=== PATIENT | female | born 1960 | race Caucasian/White ===

== ENCOUNTER 2017-02-13 17:02 | Inpatient (IN) | payer OTHER ==
[~2017-02-13] VITALS: Ht 165.1 cm; Wt 109.5 kg
--- NOTE | ~2017-02-13 | EKG ---
[address] [address] ELECTROCARDIOGRAM REPORT Name: JANET GRADY [id number] Admission: 02/13/17 Attend Phys: Discharge: Date of : 64 Report #: [id number] THIS REPORT FOR: //name// [facility] ED Test Date: 2017-02-13 Test Time: 17:58:03 Pat Name: JANET GRADY Department: Room: Gender: F Cashier Assistant: MZOOK : 1960 Requested By: Adia Pak Order Number: [id number] MD: Derrick Gill Measurements Intervals [place] Rate: 89 P: 67 MI: 133 QRS: 61 QRSD: 95 T: 59 QT: 358 QTc: 436 Interpretive Statements Sinus rhythm Poor R wave progression No previous ECG available for comparison Electronically Signed On 02-13-2017 18:31:53 CDT by Derrick Gill [email or web address] <ELECTRONICALLY SIGNED> By: Derrick Gill MD 02/13/17 1831 [id number] 1758 Derrick Gill MD /EPI
--- NOTE | ~2017-02-13 | H ---
[facility] [place] [address] HISTORY AND PHYSICAL Name: JANET GRADY Room #: 441-P ADM IN M.R.#: [id number] Admission: 02/13/17 Attend Phys: Ventura Stiles Discharge: Date of : 64 Report #: [id number] THIS REPORT FOR: //name// CC: GEGE Pond DATE OF SERVICE: 02/13/2017 ATTENDING PHYSICIAN: Speedy Pond M.D. PRIMARY CARE PHYSICIAN: Adelaida Goldberg NP-C at [facility]. CHIEF COMPLAINT: Lower extremity swelling and pain. HISTORY OF PRESENT ILLNESS: The patient is a 56-year-old obese female who is a diabetic. She states that she has had increasing swelling and pain in her lower extremities over the course of a month. She says this started after she developed some sores in bilateral aly areas. She does not know how she got these sores. She denies any insect bites or injury. She denies any prior history of DVT. She denies any recent long distance travel. She says the pain in her legs has gotten to the point where it is making walking difficult. She feels like it is a [id number] feeling in both her lower extremities. She denies any fevers or chills. She has noticed increasing exertional dyspnea and does have underlying emphysema. She has never required any oxygen at home, but does do nebulizer treatments and uses an inhaler. In the ER, she was diagnosed with a DVT as well as cellulitis and has been admitted for further treatment. PAST MEDICAL HISTORY: Diabetes, hypertension, emphysema, asthma, CVA with some residual speech problems. PAST SURGICAL HISTORY: None. ALLERGIES: None. HOME MEDICATIONS: Reviewed. SOCIAL HISTORY: The patient is a current smoker. She smokes 1-2 packs of cigarettes per day. She has been smoking since the age of 15. Denies any alcohol or drug use. She normally walks independently. She lives with her grandson and her spouse. FAMILY HISTORY: Significant for diabetes in her father who is alive. Her mother is alive and healthy. There are no family members with any cancer or coronary artery disease. REVIEW OF SYSTEMS: A 12-point review of systems was reviewed with the patient [address] [address] HISTORY AND PHYSICAL Name: JANET Lit Room #: 441-P [facility]#: [id number] Admission: 02/13/17 Attend Phys: Ventura Stiles Discharge: Date of : 64 Report #: [id number] and otherwise negative unless stated in the HPI. PHYSICAL EXAMINATION: GENERAL: The patient is an alert female in no acute distress. VITAL SIGNS: Temperature is 37.0, heart rate 89, respirations 16, blood pressure 144/74 and oxygen 99% on room air. HEENT: PERRLA. Oral mucosa is pink and moist. NECK: Supple, no JVD noted. CARDIOVASCULAR: Normal S1 and S2. No murmurs, rubs or gallops. RESPIRATORY: Breath sounds are clear bilateral upper lobes. She is diminished in both bases. Breathing is nonlabored. ABDOMEN: Soft, obese, nontender and nondistended with positive bowel sounds. VASCULAR: She does have 2+ to 3+ bilateral lower extremity edema noted, which starts in her feet and goes all the way up to her thighs. Both lower extremities are somewhat erythematous. The right is worse than the left and very tender to touch. The right calf is somewhat firm. There are open areas on both shins. The right is draining a small amount of purulent fluid. NEUROLOGIC: The patient is alert and oriented x 3. Speech is clear. She is answering questions appropriately and following commands. No focal neuro deficits noted. LABORATORY DATA AND DIAGNOSTICS: WBC is 12.5, hemoglobin 15 and platelets 254. Sodium 136, potassium 4.1, BUN 23, creatinine 1.1 and glucose is 159. LFTs are within normal limits. Troponins negative. D-dimer is 1.24 and CTA of the chest was negative for PE. Chest x-ray is negative. BNP is 62. Ultrasound of the right lower extremity showed an extensive occlusive DVT from the right common femoral through the popliteal vein. ASSESSMENT AND PLAN: 1. Extensive right lower extremity deep vein thrombosis: The patient will continue on therapeutic Lovenox. She was educated on Coumadin versus Xarelto and told we will need to switch to an oral anticoagulant today. She should continue on a blood thinner for 6 months. 2. Bilateral lower extremity cellulitis. She does have bilateral aly wounds. We will continue with antibiotics and follow the wound cultures. She will continue vancomycin. 3. Diabetes type 2. This is stable. We do need to place metformin on hold because of her CT, and we will do a sliding scale insulin and check blood sugars a.c. and at bedtime. 4. Chronic respiratory failure due to emphysema. She does have ongoing tobacco abuse. She has been advised to quit. She does request a nicotine patch. Continue with breathing treatments p.r.n. 5. Hypertension. Blood pressure is stable. Continue home medications. 6. Obesity. 7. Deep vein thrombosis prophylaxis. Start Lovenox. [facility] [address] [place] [address] HISTORY AND PHYSICAL Name: JANTE GRADY Room #: 441-P ADM IN [facility].#: [id number] Admission: 02/13/17 Attend Phys: Ventura Stiles Discharge: Date of : 64 Report #: [id number] We will continue to follow the patient closely throughout the hospitalization and make changes based on clinical status. <ELECTRONICALLY SIGNED> By: ITZEL Sidhu 02/17/17 0658 [id number] ITZEL Sidhu /nt
[~2017-02-13 17:02] MED LIST: ASPIRIN325 PO; FLOVENT HFA 1110 MCG INH; HYDROCHLOROTHIA25 M2 PO; LEVAQUIN 500 M500 M2 PO; LISINOPRIL20 MG PO; LOVASTAT40 PO; NAPROSYN500 MG PO; NICOTINE1 EAC2 TD; NORVASC10 MG PO; PREDNISONE 10 M10 MG PO; SPIRIVA INH; TRAMADOL 50 MG50 MG PO; VENTOLIN HFA 1818 GM INH; ZOLOFT100 MG PO
[2017-02-13 17:04] VITALS: BP 144/74
[2017-02-13 18:14] LABS: ABSOLUTE NEUTROPHILS 6.7 thou/uL (1.4-8.2); BASOPHILS 2.1 % (0.0-2.0); EOSINOPHILS 3.6 % (0.0-3.0); HEMATOCRIT 43.7 % (37.0-47.0); LYMPHOCYTES 31.4 % (24.0-44.0); MCH 30.5 pg (26.0-34.0); MCHC 34.3 g/dL (28.0-37.0); MCV 88.9 fL (80.0-100.0); MONOCYTES 9.3 % (1.0-8.0); PLATELET COUNT 254 thou/uL (150-400); POLYS 53.6 % (36.0-66.0); RBC 4.91 mil/uL (4.20-5.00); RDW 13.8 % (10.5-14.5); WBC 12.5 thou/uL (4.0-11.0)
[2017-02-13 18:17] LABS: MANUAL DIFF NO
[2017-02-13 18:26] LABS: ANION GAP 8 mmol/L (7-16); BUN 23 mg/dL (7-18); CALCIUM 9.6 mg/dL (8.5-10.1); CHLORIDE 99 mmol/L (98-107); CO2 29 mmol/L (21-32); CREATININE 1.1 mg/dL (0.6-1.3); GLUCOSE 159 mg/dL (70-99); POTASSIUM 4.1 mmol/L (3.5-5.1); SODIUM 136 mmol/L (136-145)
[2017-02-13 18:33] LABS: APTT 30.2 Seconds (24.5-32.8); PROTIME 9.7 Seconds (9.3-11.4)
[2017-02-13 18:42] LABS: ALBUMIN 3.5 g/dL (3.4-5.0); ALKALINE PHOSPHATASE 109 U/L (46-116); NT-PRO BRAIN NAT PEPTIDE 62 pg/mL (<300); SGOT 14 U/L (15-37); SGPT 23 U/L (30-65); TOTAL BILIRUBIN 0.2 mg/dL (<0.1-1.0); TOTAL PROTEIN 7.8 g/dL (6.4-8.2); TROPONIN-I < 0.04 ng/mL (<0.04-0.07)
[2017-02-13 20:50] VITALS: BP 139/58
[2017-02-14] MEDS ORDERED: METFORMIN HCL500 MG PO (00:12)
[2017-02-14] MEDS ORDERED: AMLODIPINE BESY10 MG PO (00:12)
[2017-02-14 03:50] VITALS: BP 118/57
[2017-02-14 08:22] VITALS: BP 108/49
[2017-02-14 12:00] VITALS: BP 123/57
[2017-02-14 16:04] VITALS: BP 121/59
[2017-02-14 20:45] VITALS: BP 109/68
[2017-02-14 21:06] LABS: GLYCOHEMOGLOBIN (HGB A1C) 6.8 % (4.8-5.6)
[2017-02-15 04:00] VITALS: BP 126/46
[2017-02-15 08:00] VITALS: BP 129/50
[2017-02-15 12:00] VITALS: BP 122/62
[2017-02-15 16:00] VITALS: BP 132/71
[2017-02-15 19:44] VITALS: BP 124/61
[2017-02-16 04:31] VITALS: BP 120/63
[2017-02-16 05:36] LABS: PROTIME 10.4 Seconds (9.3-11.4)
[2017-02-16 07:29] VITALS: BP 120/63
[2017-02-16 08:00] VITALS: BP 136/53
[2017-02-16 15:56] VITALS: BP 142/59
[2017-02-16 19:54] VITALS: BP 143/63
[2017-02-17 03:52] VITALS: BP 118/61
[2017-02-17 07:44] VITALS: BP 138/73
[2017-02-17 07:49] VITALS: BP 130/64
[2017-02-17] MEDS ORDERED: COUMADIN 4 MG TA4 M1 PO (09:53)
[2017-02-17] MEDS ORDERED: CEPHALEXIN 250250 M1 PO (09:53)
[2017-02-17] MEDS ORDERED: ENOXAPARIN100 MG/11 SUBQ (09:54)
[2017-02-17 10:44] LABS: INR 1.4; PROTIME 14.7 Seconds (9.3-11.4)
[2017-02-17 12:30] VITALS: BP 120/70
== END 2017-02-17 17:49 | disposition home or self-care (01) | DRG 300 ==
LOC: ER 17:02 → EROBS 19:24 → 4S 19:24
PROVIDERS: Family Medicine; Hospitalist; Nurse Practitioner; Nurse Practitioner Acute Care; Physician Assistant
DX: I82.411 Acute embolism and thrombosis of right femoral vein (principal); L03.116 Cellulitis of left lower limb; L03.115 Cellulitis of right lower limb; J96.10 Chronic respiratory failure, unspecified whether with hypoxia or hypercapnia; Z68.41 Body mass index [BMI] 40.0-44.9, adult; I10 Essential (primary) hypertension; J45.909 Unspecified asthma, uncomplicated; E11.9 Type 2 diabetes mellitus without complications; J43.9 Emphysema, unspecified; F17.210 Nicotine dependence, cigarettes, uncomplicated; E66.9 Obesity, unspecified; Z79.4 Long term (current) use of insulin; Z79.899 Other long term (current) drug therapy; Z86.73 Personal history of transient ischemic attack (TIA), and cerebral infarction without residual deficits; Z83.3 Family history of diabetes mellitus; Z23 Encounter for immunization
CPT/HCPCS: 10100

== ENCOUNTER 2017-04-11 22:34 | Emergency (ER) | payer OTHER ==
[~2017-04-11] VITALS: Ht 165.1 cm; Wt 111.1 kg
[~2017-04-11 22:34] MED LIST changes: +AMLODIPINE BESY10 MG PO; +CEPHALEXIN 250250 M1 PO; +COUMADIN 4 MG TA4 M1 PO; +ENOXAPARIN100 MG/11 SUBQ; +METFORMIN HCL500 MG PO
[2017-04-12 00:43] LABS: ABSOLUTE NEUTROPHILS 6.7 thou/uL (1.4-8.2); BASOPHILS 1.2 % (0.0-2.0); EOSINOPHILS 2.6 % (0.0-3.0); HEMATOCRIT 43.6 % (37.0-47.0); HEMOGLOBIN 14.7 gm/dL (12.0-15.0); LYMPHOCYTES 32.7 % (24.0-44.0); MANUAL DIFF NO; MCH 30.5 pg (26.0-34.0); MCHC 33.7 g/dL (28.0-37.0); MCV 90.4 fL (80.0-100.0); MONOCYTES 9.7 % (1.0-8.0); PLATELET COUNT 304 thou/uL (150-400); POLYS 53.8 % (36.0-66.0); RBC 4.83 mil/uL (4.20-5.00); WBC 12.4 thou/uL (4.0-11.0)
[2017-04-12 00:47] LABS: CALCIUM 9.6 mg/dL (8.5-10.1); CREATININE 1.3 mg/dL (0.6-1.0)
[2017-04-12 01:53] LABS: PROTIME 50.9 Seconds (9.3-11.4)
[2017-04-12] MEDS ORDERED: COUMADIN 1MG TAB1 M1 PO (02:19)
[2017-04-12] MEDS ORDERED: BACTRIM DS TAB1 EACH PO (02:26)
[2017-04-12] MEDS ORDERED: LASIX 20 MG TAB20 MG PO (02:26)
== END 2017-04-12 03:02 | disposition home or self-care (01) ==
LOC: ER 22:34
PROVIDERS: Emergency Medicine
DX: L08.89 Other specified local infections of the skin and subcutaneous tissue (principal); R60.9 Edema, unspecified; R79.1 Abnormal coagulation profile; I10 Essential (primary) hypertension; E11.9 Type 2 diabetes mellitus without complications; J45.909 Unspecified asthma, uncomplicated; F17.210 Nicotine dependence, cigarettes, uncomplicated

== ENCOUNTER 2017-05-28 19:43 | Inpatient (IN) | payer OTHER ==
[~2017-05-28] VITALS: Ht 165.1 cm; Wt 106.6 kg
[~2017-05-28 19:43] MED LIST changes: +BACTRIM DS TAB1 EACH PO; +COUMADIN 1MG TAB1 M1 PO; +LASIX 20 MG TAB20 MG PO
[2017-05-28 19:52] VITALS: BP 143/73
[2017-05-28 21:40] LABS: ABSOLUTE NEUTROPHILS 6.9 thou/uL (1.4-8.2); BASOPHILS 1.2 % (0.0-2.0); EOSINOPHILS 2.3 % (0.0-3.0); HEMATOCRIT 39.7 % (37.0-47.0); HEMOGLOBIN 13.3 gm/dL (12.0-15.0); LYMPHOCYTES 30.9 % (24.0-44.0); MCH 30.2 pg (26.0-34.0); MCHC 33.6 g/dL (28.0-37.0); MONOCYTES 8.8 % (1.0-8.0); PLATELET COUNT 309 thou/uL (150-400); POLYS 56.8 % (36.0-66.0); RBC 4.41 mil/uL (4.20-5.00); RDW 15.3 % (10.5-14.5); WBC 12.2 thou/uL (4.0-11.0)
[2017-05-28 21:41] LABS: MANUAL DIFF NO
[2017-05-28 21:48] LABS: ANION GAP 8 mmol/L (7-16); BUN 47 mg/dL (7-18); CALCIUM 9.6 mg/dL (8.5-10.1); CHLORIDE 104 mmol/L (98-107); CO2 25 mmol/L (21-32); CREATININE 1.4 mg/dL (0.6-1.0); GLUCOSE 117 mg/dL (74-106); POTASSIUM 5.6 mmol/L (3.5-5.1); SODIUM 137 mmol/L (136-145)
[2017-05-28 22:13] LABS: ALBUMIN 3.4 g/dL (3.4-5.0); ALKALINE PHOSPHATASE 87 U/L (46-116); DIRECT BILIRUBIN < 0.1 mg/dL (<0.1-0.3); SGOT 24 U/L (15-37); SGPT 19 U/L (30-65); TOTAL BILIRUBIN 0.4 mg/dL (<0.1-1.0); TOTAL PROTEIN 8.3 g/dL (6.4-8.2)
[2017-05-28 22:45] LABS: PROTIME 65.6 Seconds (9.3-11.4)
[2017-05-28 22:49] LABS: APTT > 198.4 Seconds (24.5-32.8); INR 6.3
[2017-05-28 23:05] VITALS: BP 101/52
[2017-05-28 23:23] VITALS: BP 109/59
[2017-05-29] VITALS (14 sets, daily range): BP systolic 71–134; BP diastolic 30–89
[2017-05-29 07:01] LABS: URINE BILIRUBIN NEGATIVE (Negative); URINE BLOOD NEGATIVE (Negative); URINE COLOR YELLOW; URINE GLUCOSE-RANDOM* NEGATIVE (Negative); URINE KETONES NEGATIVE (Negative); URINE NITRITE NEGATIVE (Negative); URINE PROTEIN (DIPSTICK) NEGATIVE (Negative); URINE UROBILINOGEN 0.2 E.U./dl (0.2-1.0)
[2017-05-29 07:30] LABS: HEMATOCRIT 37.3 % (37.0-47.0); HEMOGLOBIN 12.1 gm/dL (12.0-15.0); MCH 29.8 pg (26.0-34.0); MCHC 32.4 g/dL (28.0-37.0); MCV 92.2 fL (80.0-100.0); RBC 4.04 mil/uL (4.20-5.00); RDW 15.6 % (10.5-14.5); WBC 11.9 thou/uL (4.0-11.0)
[2017-05-29 07:47] LABS: INR 5.6; PROTIME 58.2 Seconds (9.3-11.4)
[2017-05-29 07:50] LABS: CALCIUM 8.9 mg/dL (8.5-10.1); CREATININE 2.2 mg/dL (0.6-1.0); POTASSIUM 5.7 mmol/L (3.5-5.1); TOTAL BILIRUBIN 0.3 mg/dL (<0.1-1.0); TOTAL PROTEIN 7.2 g/dL (6.4-8.2)
[2017-05-29] MEDS ORDERED: Coumadin (18:34)
[2017-05-29] MEDS ORDERED: NAPROSYN500 M1 PO (18:36)
[2017-05-29] MEDS ORDERED: FLEXERIL PO (18:39)
[2017-05-30 00:31] VITALS: BP 122/61
[2017-05-30 04:00] VITALS: BP 91/52
[2017-05-30 05:54] LABS: ABSOLUTE NEUTROPHILS 5.1 thou/uL (1.4-8.2); EOSINOPHILS 2.7 % (0.0-3.0); HEMATOCRIT 35.6 % (37.0-47.0); HEMOGLOBIN 11.9 gm/dL (12.0-15.0); LYMPHOCYTES 36.5 % (24.0-44.0); MCH 30.5 pg (26.0-34.0); MCHC 33.4 g/dL (28.0-37.0); MCV 91.3 fL (80.0-100.0); MONOCYTES 10.3 % (1.0-8.0); PLATELET COUNT 263 thou/uL (150-400); POLYS 49.5 % (36.0-66.0); RDW 15.1 % (10.5-14.5); WBC 10.3 thou/uL (4.0-11.0)
[2017-05-30 06:02] LABS: MANUAL DIFF NO
[2017-05-30 06:12] LABS: INR 1.9; PROTIME 19.2 Seconds (9.3-11.4)
[2017-05-30 06:21] LABS: CALCIUM 8.4 mg/dL (8.5-10.1); CREATININE 2.2 mg/dL (0.6-1.0); POTASSIUM 5.7 mmol/L (3.5-5.1)
[2017-05-30 08:46] VITALS: BP 102/57
[2017-05-30 16:31] VITALS: BP 93/55
[2017-05-30 20:30] VITALS: BP 90/53
[2017-05-31 04:28] LABS: INR 1.2; PROTIME 12.1 Seconds (9.3-11.4)
[2017-05-31 04:50] LABS: HEMATOCRIT 35.3 % (37.0-47.0); HEMOGLOBIN 11.7 gm/dL (12.0-15.0); MCH 30.3 pg (26.0-34.0); MCHC 33.1 g/dL (28.0-37.0); MCV 91.3 fL (80.0-100.0); RBC 3.87 mil/uL (4.20-5.00); RDW 15.1 % (10.5-14.5); WBC 10.6 thou/uL (4.0-11.0)
[2017-05-31 04:55] LABS: ALBUMIN 2.8 g/dL (3.4-5.0); CALCIUM 8.6 mg/dL (8.5-10.1); CREATININE 1.8 mg/dL (0.6-1.0); MAGNESIUM 1.7 mg/dL (1.8-2.4); POTASSIUM 5.6 mmol/L (3.5-5.1); TOTAL BILIRUBIN 0.3 mg/dL (<0.1-1.0)
[2017-05-31 05:00] VITALS: BP 95/63
[2017-05-31 08:00] VITALS: BP 109/64
[2017-05-31 16:00] VITALS: BP 116/53
[2017-05-31 19:30] VITALS: BP 121/61
[2017-05-31 21:06] VITALS: BP 114/45
[2017-06-01 02:57] VITALS: BP 107/53
[2017-06-01 05:00] LABS: ABSOLUTE NEUTROPHILS 5.6 thou/uL (1.4-8.2); BASOPHILS 0.8 % (0.0-2.0); EOSINOPHILS 2.9 % (0.0-3.0); HEMATOCRIT 34.2 % (37.0-47.0); HEMOGLOBIN 11.7 gm/dL (12.0-15.0); LYMPHOCYTES 26.3 % (24.0-44.0); MCH 30.6 pg (26.0-34.0); MCHC 34.1 g/dL (28.0-37.0); MCV 89.6 fL (80.0-100.0); MONOCYTES 9.7 % (1.0-8.0); PLATELET COUNT 256 thou/uL (150-400); POLYS 60.3 % (36.0-66.0); RBC 3.82 mil/uL (4.20-5.00); RDW 14.7 % (10.5-14.5); WBC 9.4 thou/uL (4.0-11.0)
[2017-06-01 05:01] LABS: MANUAL DIFF NO
[2017-06-01 05:07] LABS: CALCIUM 8.7 mg/dL (8.5-10.1); CREATININE 1.2 mg/dL (0.6-1.0); MAGNESIUM 1.9 mg/dL (1.8-2.4); PHOSPHORUS 2.7 mg/dL (2.5-4.9); POTASSIUM 4.9 mmol/L (3.5-5.1)
[2017-06-01 05:42] LABS: INR 1.1; PROTIME 10.9 Seconds (9.3-11.4)
[2017-06-01 08:53] VITALS: BP 130/76
[2017-06-01] MEDS ORDERED: DOXYCYCLINE 10100 MG PO (09:39)
[2017-06-01 12:33] VITALS: BP 130/76
== END 2017-06-01 15:50 | disposition home or self-care (01) | DRG 871 ==
LOC: ER 19:43 → 4S 22:04 → EROBS 22:04 → 4S 22:52
PROVIDERS: Family Medicine; Nurse Practitioner; Nurse Practitioner Family; Registered Nurse
DX: A41.9 Sepsis, unspecified organism (principal); J96.00 Acute respiratory failure, unspecified whether with hypoxia or hypercapnia; L03.116 Cellulitis of left lower limb; L03.115 Cellulitis of right lower limb; J44.9 Chronic obstructive pulmonary disease, unspecified; J45.909 Unspecified asthma, uncomplicated; F17.210 Nicotine dependence, cigarettes, uncomplicated; E11.22 Type 2 diabetes mellitus with diabetic chronic kidney disease; I87.2 Venous insufficiency (chronic) (peripheral); I12.9 Hypertensive chronic kidney disease with stage 1 through stage 4 chronic kidney disease, or unspecified chronic kidney disease; N18.3 Chronic kidney disease, stage 3 (moderate); E87.5 Hyperkalemia; R09.02 Hypoxemia; I95.9 Hypotension, unspecified; A49.02 Methicillin resistant Staphylococcus aureus infection, unspecified site; Z86.718 Personal history of other venous thrombosis and embolism; Z79.01 Long term (current) use of anticoagulants; Z79.82 Long term (current) use of aspirin; Z79.899 Other long term (current) drug therapy
CPT/HCPCS: 10100

== ENCOUNTER → 2017-06-09 | Outpatient (CLI) | payer OTHER ==
[~2017-06-09] MED LIST changes: +Coumadin; +DOXYCYCLINE 10100 MG PO; +FLEXERIL PO; +NAPROSYN500 M1 PO
== END ==
LOC: HYPER 06:57
DX: E11.622 Type 2 diabetes mellitus with other skin ulcer (principal); L97.811 Non-pressure chronic ulcer of other part of right lower leg limited to breakdown of skin; L97.821 Non-pressure chronic ulcer of other part of left lower leg limited to breakdown of skin; I10 Essential (primary) hypertension; J43.9 Emphysema, unspecified; Z79.84 Long term (current) use of oral hypoglycemic drugs; Z79.01 Long term (current) use of anticoagulants; Z86.718 Personal history of other venous thrombosis and embolism; Z86.14 Personal history of Methicillin resistant Staphylococcus aureus infection; F17.200 Nicotine dependence, unspecified, uncomplicated

== ENCOUNTER → 2017-06-23 | Outpatient (CLI) | payer OTHER | LOC: HYPER 07:01 | DX: E11.622 Type 2 diabetes mellitus with other skin ulcer (principal); L97.811 Non-pressure chronic ulcer of other part of right lower leg limited to breakdown of skin; L97.821 Non-pressure chronic ulcer of other part of left lower leg limited to breakdown of skin; E11.628 Type 2 diabetes mellitus with other skin complications; Z79.84 Long term (current) use of oral hypoglycemic drugs; Z79.01 Long term (current) use of anticoagulants; Z86.718 Personal history of other venous thrombosis and embolism; I10 Essential (primary) hypertension; Z86.14 Personal history of Methicillin resistant Staphylococcus aureus infection; J43.9 Emphysema, unspecified; F17.200 Nicotine dependence, unspecified, uncomplicated ==

== ENCOUNTER → 2017-08-04 | Outpatient (CLI) | payer OTHER | LOC: HYPER 07-07 07:07 | DX: E11.622 Type 2 diabetes mellitus with other skin ulcer (principal); L97.812 Non-pressure chronic ulcer of other part of right lower leg with fat layer exposed; L97.822 Non-pressure chronic ulcer of other part of left lower leg with fat layer exposed; Z79.84 Long term (current) use of oral hypoglycemic drugs; Z79.01 Long term (current) use of anticoagulants; Z86.718 Personal history of other venous thrombosis and embolism; I10 Essential (primary) hypertension; Z86.14 Personal history of Methicillin resistant Staphylococcus aureus infection; J43.9 Emphysema, unspecified; F17.200 Nicotine dependence, unspecified, uncomplicated ==

== ENCOUNTER 2017-09-12 11:55 | Emergency (ER) | payer OTHER ==
[~2017-09-12] VITALS: Ht 165.1 cm; Wt 102.1 kg
[2017-09-12 13:51] LABS: HEMATOCRIT 41.9 % (37.0-47.0); MCH 30.2 pg (26.0-34.0); MCHC 33.3 g/dL (28.0-37.0); MCV 90.7 fL (80.0-100.0); RBC 4.62 mil/uL (4.20-5.00); RDW 14.4 % (10.5-14.5); WBC 7.4 thou/uL (4.0-11.0)
[2017-09-12 13:59] LABS: CREATININE 1.4 mg/dL (0.6-1.0); POTASSIUM 4.5 mmol/L (3.5-5.1)
[2017-09-12 14:07] LABS: INR 3.3; PROTIME 32.8 Seconds (9.3-11.4)
== END 2017-09-12 14:23 | disposition home or self-care (01) ==
LOC: ER 11:55
PROVIDERS: Emergency Medicine
DX: M79.605 Pain in left leg (principal); I10 Essential (primary) hypertension; E11.9 Type 2 diabetes mellitus without complications; J45.909 Unspecified asthma, uncomplicated; F17.210 Nicotine dependence, cigarettes, uncomplicated; Z86.718 Personal history of other venous thrombosis and embolism; Z86.79 Personal history of other diseases of the circulatory system

== ENCOUNTER → 2017-10-21 | Outpatient (CLI) | payer OTHER | LOC: HYPER 07:58 | DX: E11.622 Type 2 diabetes mellitus with other skin ulcer (principal); I87.2 Venous insufficiency (chronic) (peripheral); L97.812 Non-pressure chronic ulcer of other part of right lower leg with fat layer exposed; L97.822 Non-pressure chronic ulcer of other part of left lower leg with fat layer exposed; E11.628 Type 2 diabetes mellitus with other skin complications; I10 Essential (primary) hypertension; J43.9 Emphysema, unspecified; F17.200 Nicotine dependence, unspecified, uncomplicated; Z86.718 Personal history of other venous thrombosis and embolism; Z79.01 Long term (current) use of anticoagulants; Z79.84 Long term (current) use of oral hypoglycemic drugs ==

== ENCOUNTER → 2017-11-18 | Outpatient (CLI) | payer OTHER | LOC: HYPER 06:42 | DX: E11.622 Type 2 diabetes mellitus with other skin ulcer (principal); L97.812 Non-pressure chronic ulcer of other part of right lower leg with fat layer exposed; L97.822 Non-pressure chronic ulcer of other part of left lower leg with fat layer exposed; I10 Essential (primary) hypertension; J43.8 Other emphysema; F17.200 Nicotine dependence, unspecified, uncomplicated; Z86.718 Personal history of other venous thrombosis and embolism; Z79.84 Long term (current) use of oral hypoglycemic drugs; Z79.01 Long term (current) use of anticoagulants ==

== ENCOUNTER → 2017-12-09 | Outpatient (CLI) | payer OTHER | LOC: HYPER 06:47 | DX: E11.622 Type 2 diabetes mellitus with other skin ulcer (principal); L97.812 Non-pressure chronic ulcer of other part of right lower leg with fat layer exposed; L97.822 Non-pressure chronic ulcer of other part of left lower leg with fat layer exposed; E11.628 Type 2 diabetes mellitus with other skin complications; Z79.84 Long term (current) use of oral hypoglycemic drugs; Z79.01 Long term (current) use of anticoagulants; J44.9 Chronic obstructive pulmonary disease, unspecified; Z86.718 Personal history of other venous thrombosis and embolism; F17.210 Nicotine dependence, cigarettes, uncomplicated ==

== ENCOUNTER → 2018-01-06 | Outpatient (CLI) | payer OTHER | LOC: HYPER 07:05 | DX: E11.622 Type 2 diabetes mellitus with other skin ulcer (principal); L97.812 Non-pressure chronic ulcer of other part of right lower leg with fat layer exposed; E11.628 Type 2 diabetes mellitus with other skin complications; J43.9 Emphysema, unspecified; I10 Essential (primary) hypertension; F17.200 Nicotine dependence, unspecified, uncomplicated; Z79.84 Long term (current) use of oral hypoglycemic drugs; Z79.01 Long term (current) use of anticoagulants; Z86.718 Personal history of other venous thrombosis and embolism ==

== ENCOUNTER → 2018-02-03 | Outpatient (CLI) | payer OTHER | LOC: HYPER 06:47 | DX: E11.622 Type 2 diabetes mellitus with other skin ulcer (principal); L97.812 Non-pressure chronic ulcer of other part of right lower leg with fat layer exposed; L84 Corns and callosities; I10 Essential (primary) hypertension; J43.9 Emphysema, unspecified; F17.200 Nicotine dependence, unspecified, uncomplicated; Z86.718 Personal history of other venous thrombosis and embolism; Z79.84 Long term (current) use of oral hypoglycemic drugs; Z79.01 Long term (current) use of anticoagulants ==

== ENCOUNTER → 2018-03-31 | Outpatient (CLI) | payer OTHER | LOC: HYPER 06:48 | DX: E11.622 Type 2 diabetes mellitus with other skin ulcer (principal); L97.812 Non-pressure chronic ulcer of other part of right lower leg with fat layer exposed; I10 Essential (primary) hypertension; J43.9 Emphysema, unspecified; F17.200 Nicotine dependence, unspecified, uncomplicated; Z79.84 Long term (current) use of oral hypoglycemic drugs; Z79.01 Long term (current) use of anticoagulants; Z86.718 Personal history of other venous thrombosis and embolism ==

== ENCOUNTER → 2018-05-04 | Outpatient (CLI) | payer OTHER | LOC: HYPER 07:06 | DX: E11.622 Type 2 diabetes mellitus with other skin ulcer (principal); L97.812 Non-pressure chronic ulcer of other part of right lower leg with fat layer exposed; I10 Essential (primary) hypertension; L84 Corns and callosities; J43.9 Emphysema, unspecified; F17.200 Nicotine dependence, unspecified, uncomplicated; Z79.84 Long term (current) use of oral hypoglycemic drugs; Z79.01 Long term (current) use of anticoagulants; Z86.718 Personal history of other venous thrombosis and embolism ==

== ENCOUNTER → 2018-05-18 | Outpatient (CLI) | payer OTHER | LOC: HYPER 06:55 | DX: E11.622 Type 2 diabetes mellitus with other skin ulcer (principal); L97.812 Non-pressure chronic ulcer of other part of right lower leg with fat layer exposed; R60.1 Generalized edema; I10 Essential (primary) hypertension; J45.909 Unspecified asthma, uncomplicated; J43.9 Emphysema, unspecified; F17.200 Nicotine dependence, unspecified, uncomplicated; Z79.84 Long term (current) use of oral hypoglycemic drugs; Z79.01 Long term (current) use of anticoagulants; Z72.0 Tobacco use; Z86.718 Personal history of other venous thrombosis and embolism ==

== ENCOUNTER → 2018-06-09 | Outpatient (CLI) | payer OTHER | LOC: HYPER 06-01 06:56 | DX: E11.622 Type 2 diabetes mellitus with other skin ulcer (principal); L97.812 Non-pressure chronic ulcer of other part of right lower leg with fat layer exposed; I10 Essential (primary) hypertension; J43.9 Emphysema, unspecified; F17.200 Nicotine dependence, unspecified, uncomplicated; Z79.84 Long term (current) use of oral hypoglycemic drugs; Z79.01 Long term (current) use of anticoagulants; Z86.718 Personal history of other venous thrombosis and embolism ==

== ENCOUNTER → 2018-06-23 | Outpatient (CLI) | payer OTHER | LOC: HYPER 06:51 | DX: E11.622 Type 2 diabetes mellitus with other skin ulcer (principal); L97.812 Non-pressure chronic ulcer of other part of right lower leg with fat layer exposed; I10 Essential (primary) hypertension; L84 Corns and callosities; J34.9 Unspecified disorder of nose and nasal sinuses; F17.200 Nicotine dependence, unspecified, uncomplicated; Z79.84 Long term (current) use of oral hypoglycemic drugs; Z86.718 Personal history of other venous thrombosis and embolism; Z79.01 Long term (current) use of anticoagulants ==

== ENCOUNTER → 2018-09-07 | Outpatient (CLI) | payer OTHER | LOC: HYPER 08-26 06:52 | DX: E11.622 Type 2 diabetes mellitus with other skin ulcer (principal); L97.812 Non-pressure chronic ulcer of other part of right lower leg with fat layer exposed; L84 Corns and callosities; I10 Essential (primary) hypertension; J43.9 Emphysema, unspecified; F17.200 Nicotine dependence, unspecified, uncomplicated; Z86.718 Personal history of other venous thrombosis and embolism; Z79.84 Long term (current) use of oral hypoglycemic drugs; Z79.01 Long term (current) use of anticoagulants ==

== ENCOUNTER → 2018-09-28 | Outpatient (CLI) | payer OTHER | LOC: HYPER 07:18 | DX: E11.622 Type 2 diabetes mellitus with other skin ulcer (principal); L97.812 Non-pressure chronic ulcer of other part of right lower leg with fat layer exposed; L84 Corns and callosities; I10 Essential (primary) hypertension; J43.9 Emphysema, unspecified; F17.200 Nicotine dependence, unspecified, uncomplicated; Z86.718 Personal history of other venous thrombosis and embolism; Z79.84 Long term (current) use of oral hypoglycemic drugs; Z79.01 Long term (current) use of anticoagulants ==

== ENCOUNTER → 2018-11-02 | Outpatient (CLI) | payer OTHER | LOC: HYPER 10-19 08:55 | DX: E11.622 Type 2 diabetes mellitus with other skin ulcer (principal); L97.812 Non-pressure chronic ulcer of other part of right lower leg with fat layer exposed; I10 Essential (primary) hypertension; J43.9 Emphysema, unspecified; F17.200 Nicotine dependence, unspecified, uncomplicated; Z79.84 Long term (current) use of oral hypoglycemic drugs; Z79.01 Long term (current) use of anticoagulants; Z86.718 Personal history of other venous thrombosis and embolism ==

== ENCOUNTER → 2018-11-30 | Outpatient (CLI) | payer OTHER | LOC: HYPER 06:37 | DX: E11.622 Type 2 diabetes mellitus with other skin ulcer (principal); L97.812 Non-pressure chronic ulcer of other part of right lower leg with fat layer exposed; L84 Corns and callosities; I10 Essential (primary) hypertension; J43.9 Emphysema, unspecified; F17.200 Nicotine dependence, unspecified, uncomplicated; Z79.84 Long term (current) use of oral hypoglycemic drugs; Z86.718 Personal history of other venous thrombosis and embolism; Z79.01 Long term (current) use of anticoagulants ==

== ENCOUNTER → 2018-12-28 | Outpatient (CLI) | payer OTHER | LOC: HYPER 06:56 | DX: E11.622 Type 2 diabetes mellitus with other skin ulcer (principal); L97.812 Non-pressure chronic ulcer of other part of right lower leg with fat layer exposed; L84 Corns and callosities; I10 Essential (primary) hypertension; J43.9 Emphysema, unspecified; F17.200 Nicotine dependence, unspecified, uncomplicated; Z86.718 Personal history of other venous thrombosis and embolism; Z79.84 Long term (current) use of oral hypoglycemic drugs; Z79.01 Long term (current) use of anticoagulants ==

== ENCOUNTER → 2019-01-25 | Outpatient (CLI) | payer OTHER | LOC: HYPER 07:07 | DX: E11.622 Type 2 diabetes mellitus with other skin ulcer (principal); L97.812 Non-pressure chronic ulcer of other part of right lower leg with fat layer exposed; L84 Corns and callosities; I10 Essential (primary) hypertension; J43.9 Emphysema, unspecified; F17.200 Nicotine dependence, unspecified, uncomplicated; Z86.718 Personal history of other venous thrombosis and embolism; Z79.84 Long term (current) use of oral hypoglycemic drugs; Z79.01 Long term (current) use of anticoagulants ==

== ENCOUNTER → 2019-02-22 | Outpatient (CLI) | payer OTHER | LOC: HYPER 07:47 | DX: E11.622 Type 2 diabetes mellitus with other skin ulcer (principal); L97.812 Non-pressure chronic ulcer of other part of right lower leg with fat layer exposed; L84 Corns and callosities; I10 Essential (primary) hypertension; J43.9 Emphysema, unspecified; F17.200 Nicotine dependence, unspecified, uncomplicated; Z79.84 Long term (current) use of oral hypoglycemic drugs; Z86.718 Personal history of other venous thrombosis and embolism; Z79.01 Long term (current) use of anticoagulants ==

== ENCOUNTER → 2019-03-31 | Outpatient (CLI) | payer OTHER | LOC: HYPER 06:44 | DX: E11.622 Type 2 diabetes mellitus with other skin ulcer (principal); L97.812 Non-pressure chronic ulcer of other part of right lower leg with fat layer exposed; I87.2 Venous insufficiency (chronic) (peripheral); R60.1 Generalized edema; L84 Corns and callosities; I10 Essential (primary) hypertension; J43.9 Emphysema, unspecified; F17.200 Nicotine dependence, unspecified, uncomplicated; Z79.84 Long term (current) use of oral hypoglycemic drugs; Z79.01 Long term (current) use of anticoagulants; Z86.718 Personal history of other venous thrombosis and embolism ==

== ENCOUNTER → 2021-02-27 | Outpatient (CLI) | payer OTHER | LOC: HYPER 08:39 | PROVIDERS: ATTEND Emergency Medicine | DX: E11.622 Type 2 diabetes mellitus with other skin ulcer (principal); L97.812 Non-pressure chronic ulcer of other part of right lower leg with fat layer exposed; I87.2 Venous insufficiency (chronic) (peripheral); E66.01 Morbid (severe) obesity due to excess calories; I10 Essential (primary) hypertension; J43.9 Emphysema, unspecified; F17.219 Nicotine dependence, cigarettes, with unspecified nicotine-induced disorders; Z86.14 Personal history of Methicillin resistant Staphylococcus aureus infection; Z86.718 Personal history of other venous thrombosis and embolism; Z68.39 Body mass index [BMI] 39.0-39.9, adult; Z79.84 Long term (current) use of oral hypoglycemic drugs ==

== ENCOUNTER → 2021-03-08 | Outpatient (CLI) | payer OTHER | LOC: SJCVCIMAG 09:23 | PROVIDERS: ATTEND Internal Medicine Cardiovascular Disease | DX: I73.9 Peripheral vascular disease, unspecified (principal); L97.919 Non-pressure chronic ulcer of unspecified part of right lower leg with unspecified severity ==

== ENCOUNTER → 2021-03-13 | Outpatient (CLI) | payer OTHER | LOC: HYPER 09:34 | PROVIDERS: ATTEND Emergency Medicine | DX: E11.622 Type 2 diabetes mellitus with other skin ulcer (principal); L97.812 Non-pressure chronic ulcer of other part of right lower leg with fat layer exposed; I87.2 Venous insufficiency (chronic) (peripheral); E66.01 Morbid (severe) obesity due to excess calories; I10 Essential (primary) hypertension; J43.9 Emphysema, unspecified; F17.219 Nicotine dependence, cigarettes, with unspecified nicotine-induced disorders; Z86.14 Personal history of Methicillin resistant Staphylococcus aureus infection; Z86.718 Personal history of other venous thrombosis and embolism; Z68.39 Body mass index [BMI] 39.0-39.9, adult; Z79.84 Long term (current) use of oral hypoglycemic drugs ==

== ENCOUNTER → 2021-03-27 | Outpatient (CLI) | payer OTHER | LOC: HYPER 07:49 | PROVIDERS: ATTEND Emergency Medicine | DX: E11.622 Type 2 diabetes mellitus with other skin ulcer (principal); L97.812 Non-pressure chronic ulcer of other part of right lower leg with fat layer exposed; I87.2 Venous insufficiency (chronic) (peripheral); E66.01 Morbid (severe) obesity due to excess calories; I10 Essential (primary) hypertension; J43.9 Emphysema, unspecified; F17.219 Nicotine dependence, cigarettes, with unspecified nicotine-induced disorders; Z86.14 Personal history of Methicillin resistant Staphylococcus aureus infection; Z86.718 Personal history of other venous thrombosis and embolism; Z68.39 Body mass index [BMI] 39.0-39.9, adult; Z79.84 Long term (current) use of oral hypoglycemic drugs ==

== ENCOUNTER → 2021-04-10 | Outpatient (CLI) | payer OTHER | LOC: HYPER 07:58 | PROVIDERS: ATTEND Emergency Medicine | DX: E11.622 Type 2 diabetes mellitus with other skin ulcer (principal); L97.812 Non-pressure chronic ulcer of other part of right lower leg with fat layer exposed; I87.2 Venous insufficiency (chronic) (peripheral); E66.01 Morbid (severe) obesity due to excess calories; I10 Essential (primary) hypertension; J43.9 Emphysema, unspecified; F17.219 Nicotine dependence, cigarettes, with unspecified nicotine-induced disorders; Z86.14 Personal history of Methicillin resistant Staphylococcus aureus infection; Z86.718 Personal history of other venous thrombosis and embolism; Z68.39 Body mass index [BMI] 39.0-39.9, adult; Z79.84 Long term (current) use of oral hypoglycemic drugs ==

== ENCOUNTER → 2021-05-01 | Outpatient (CLI) | payer OTHER | LOC: HYPER 07:52 | PROVIDERS: ATTEND Emergency Medicine | DX: E11.622 Type 2 diabetes mellitus with other skin ulcer (principal); L97.812 Non-pressure chronic ulcer of other part of right lower leg with fat layer exposed; I87.2 Venous insufficiency (chronic) (peripheral); E66.01 Morbid (severe) obesity due to excess calories; I10 Essential (primary) hypertension; J43.9 Emphysema, unspecified; F17.219 Nicotine dependence, cigarettes, with unspecified nicotine-induced disorders; Z86.14 Personal history of Methicillin resistant Staphylococcus aureus infection; Z86.718 Personal history of other venous thrombosis and embolism; Z68.39 Body mass index [BMI] 39.0-39.9, adult; Z79.84 Long term (current) use of oral hypoglycemic drugs ==

== ENCOUNTER → 2021-05-22 | Outpatient (CLI) | payer OTHER | LOC: HYPER 07:47 | PROVIDERS: ATTEND Emergency Medicine | DX: E11.622 Type 2 diabetes mellitus with other skin ulcer (principal); L97.812 Non-pressure chronic ulcer of other part of right lower leg with fat layer exposed; I87.2 Venous insufficiency (chronic) (peripheral); L84 Corns and callosities; I10 Essential (primary) hypertension; J43.9 Emphysema, unspecified; E66.01 Morbid (severe) obesity due to excess calories; F17.219 Nicotine dependence, cigarettes, with unspecified nicotine-induced disorders; Z68.39 Body mass index [BMI] 39.0-39.9, adult; Z86.718 Personal history of other venous thrombosis and embolism; Z86.14 Personal history of Methicillin resistant Staphylococcus aureus infection; Z79.84 Long term (current) use of oral hypoglycemic drugs; Z79.899 Other long term (current) drug therapy; Z98.890 Other specified postprocedural states ==

== ENCOUNTER → 2021-06-12 | Outpatient (CLI) | payer OTHER | LOC: HYPER 08:47 | PROVIDERS: ATTEND Emergency Medicine | DX: E11.622 Type 2 diabetes mellitus with other skin ulcer (principal); L97.812 Non-pressure chronic ulcer of other part of right lower leg with fat layer exposed; I87.2 Venous insufficiency (chronic) (peripheral); L84 Corns and callosities; I10 Essential (primary) hypertension; J43.9 Emphysema, unspecified; E66.01 Morbid (severe) obesity due to excess calories; F17.219 Nicotine dependence, cigarettes, with unspecified nicotine-induced disorders; Z68.39 Body mass index [BMI] 39.0-39.9, adult; Z86.718 Personal history of other venous thrombosis and embolism; Z86.14 Personal history of Methicillin resistant Staphylococcus aureus infection; Z79.84 Long term (current) use of oral hypoglycemic drugs ==

== ENCOUNTER → 2021-07-03 | Outpatient (CLI) | payer OTHER | LOC: HYPER 08:31 | PROVIDERS: ATTEND Emergency Medicine | DX: E11.622 Type 2 diabetes mellitus with other skin ulcer (principal); L97.812 Non-pressure chronic ulcer of other part of right lower leg with fat layer exposed; I87.2 Venous insufficiency (chronic) (peripheral); L84 Corns and callosities; I10 Essential (primary) hypertension; J43.9 Emphysema, unspecified; E66.01 Morbid (severe) obesity due to excess calories; F17.219 Nicotine dependence, cigarettes, with unspecified nicotine-induced disorders; F17.200 Nicotine dependence, unspecified, uncomplicated; Z68.39 Body mass index [BMI] 39.0-39.9, adult; Z86.14 Personal history of Methicillin resistant Staphylococcus aureus infection; Z86.718 Personal history of other venous thrombosis and embolism; Z79.84 Long term (current) use of oral hypoglycemic drugs; Z79.899 Other long term (current) drug therapy ==

== ENCOUNTER → 2021-07-24 | Outpatient (CLI) | payer OTHER | LOC: HYPER 07:44 | PROVIDERS: ATTEND Emergency Medicine | DX: E11.622 Type 2 diabetes mellitus with other skin ulcer (principal); L97.812 Non-pressure chronic ulcer of other part of right lower leg with fat layer exposed; I87.2 Venous insufficiency (chronic) (peripheral); L84 Corns and callosities; I10 Essential (primary) hypertension; J43.9 Emphysema, unspecified; E66.01 Morbid (severe) obesity due to excess calories; F17.219 Nicotine dependence, cigarettes, with unspecified nicotine-induced disorders; Z68.39 Body mass index [BMI] 39.0-39.9, adult; Z86.14 Personal history of Methicillin resistant Staphylococcus aureus infection; Z86.718 Personal history of other venous thrombosis and embolism; Z79.84 Long term (current) use of oral hypoglycemic drugs ==

== ENCOUNTER → 2021-08-07 | Outpatient (CLI) | payer OTHER | LOC: HYPER 07:38 | PROVIDERS: ATTEND Emergency Medicine | DX: E11.622 Type 2 diabetes mellitus with other skin ulcer (principal); L97.812 Non-pressure chronic ulcer of other part of right lower leg with fat layer exposed; I87.2 Venous insufficiency (chronic) (peripheral); L84 Corns and callosities; I10 Essential (primary) hypertension; J43.9 Emphysema, unspecified; E66.01 Morbid (severe) obesity due to excess calories; F17.219 Nicotine dependence, cigarettes, with unspecified nicotine-induced disorders; Z68.39 Body mass index [BMI] 39.0-39.9, adult; Z86.14 Personal history of Methicillin resistant Staphylococcus aureus infection; Z86.718 Personal history of other venous thrombosis and embolism; Z79.84 Long term (current) use of oral hypoglycemic drugs; Z79.899 Other long term (current) drug therapy ==

== ENCOUNTER → 2021-08-28 | Outpatient (CLI) | payer OTHER | LOC: HYPER 12:55 | PROVIDERS: ATTEND Emergency Medicine | DX: E11.622 Type 2 diabetes mellitus with other skin ulcer (principal); L97.812 Non-pressure chronic ulcer of other part of right lower leg with fat layer exposed; L84 Corns and callosities; E66.01 Morbid (severe) obesity due to excess calories; I87.2 Venous insufficiency (chronic) (peripheral); I10 Essential (primary) hypertension; J43.9 Emphysema, unspecified; F17.219 Nicotine dependence, cigarettes, with unspecified nicotine-induced disorders; Z68.39 Body mass index [BMI] 39.0-39.9, adult; Z86.14 Personal history of Methicillin resistant Staphylococcus aureus infection; Z86.718 Personal history of other venous thrombosis and embolism; Z79.84 Long term (current) use of oral hypoglycemic drugs ==

== ENCOUNTER → 2021-09-18 | Outpatient (CLI) | payer OTHER | LOC: HYPER 08:08 | PROVIDERS: ATTEND Emergency Medicine | DX: E11.622 Type 2 diabetes mellitus with other skin ulcer (principal); L97.812 Non-pressure chronic ulcer of other part of right lower leg with fat layer exposed; S81.801A Unspecified open wound, right lower leg, initial encounter; L84 Corns and callosities; E66.01 Morbid (severe) obesity due to excess calories; I87.2 Venous insufficiency (chronic) (peripheral); I10 Essential (primary) hypertension; J43.9 Emphysema, unspecified; F17.219 Nicotine dependence, cigarettes, with unspecified nicotine-induced disorders; Z68.39 Body mass index [BMI] 39.0-39.9, adult; Z86.14 Personal history of Methicillin resistant Staphylococcus aureus infection; Z86.718 Personal history of other venous thrombosis and embolism; Z79.84 Long term (current) use of oral hypoglycemic drugs; X58.XXXA Exposure to other specified factors, initial encounter; Y93.89 Activity, other specified; Y92.89 Other specified places as the place of occurrence of the external cause; Y99.8 Other external cause status ==

== ENCOUNTER → 2021-10-09 | Outpatient (CLI) | payer OTHER | LOC: HYPER 07:48 | PROVIDERS: ATTEND Emergency Medicine | DX: E11.622 Type 2 diabetes mellitus with other skin ulcer (principal); L97.812 Non-pressure chronic ulcer of other part of right lower leg with fat layer exposed; S81.801D Unspecified open wound, right lower leg, subsequent encounter; L84 Corns and callosities; E66.01 Morbid (severe) obesity due to excess calories; I87.2 Venous insufficiency (chronic) (peripheral); I10 Essential (primary) hypertension; J43.9 Emphysema, unspecified; F17.219 Nicotine dependence, cigarettes, with unspecified nicotine-induced disorders; Z68.39 Body mass index [BMI] 39.0-39.9, adult; Z86.14 Personal history of Methicillin resistant Staphylococcus aureus infection; Z86.718 Personal history of other venous thrombosis and embolism; Z79.84 Long term (current) use of oral hypoglycemic drugs; X58.XXXD Exposure to other specified factors, subsequent encounter ==

== ENCOUNTER → 2021-10-30 | Outpatient (CLI) | payer OTHER | LOC: HYPER 07:43 | PROVIDERS: ATTEND Emergency Medicine | DX: E11.622 Type 2 diabetes mellitus with other skin ulcer (principal); L97.812 Non-pressure chronic ulcer of other part of right lower leg with fat layer exposed; S81.801D Unspecified open wound, right lower leg, subsequent encounter; L84 Corns and callosities; E66.01 Morbid (severe) obesity due to excess calories; I87.2 Venous insufficiency (chronic) (peripheral); I10 Essential (primary) hypertension; J43.9 Emphysema, unspecified; F17.219 Nicotine dependence, cigarettes, with unspecified nicotine-induced disorders; Z68.39 Body mass index [BMI] 39.0-39.9, adult; Z86.14 Personal history of Methicillin resistant Staphylococcus aureus infection; Z86.718 Personal history of other venous thrombosis and embolism; Z79.84 Long term (current) use of oral hypoglycemic drugs; X58.XXXD Exposure to other specified factors, subsequent encounter ==